=== PATIENT | male | born 1950 | race Caucasian/White ===

== ENCOUNTER 2017-05-30 12:35 | Inpatient (IN) ==
[2017-05-30] MEDS ORDERED: ACETAMINOPHEN 325 MG TABLET PO PRN (13:01)
[2017-05-30] MEDS ORDERED: ONDANSETRON 4 MG/2 ML VIAL IV PRN (13:01)
[2017-05-30] MEDS ORDERED: DEXTROSE 5% NACL 0.9% 1,000 ML IV SCH (13:30)
[2017-05-30 14:23] LABS: Eosinophils % 0.1 % (0.00-10.9); Hematocrit 38.3 VOL% (42.0-52.0); Hemoglobin 12.8 GM/DL (14.0-18.0); Immature Granulocytes Absolute 0.15 #; Lymphocytes # 0.5 10*3/uL (1.4-4.0); Lymphocytes % 3.5 % (21.2-54.2); Mean Corpuscular HGB Conc 33.4 GM/DL (32-36); Mean Corpuscular Hemoglobin 29 PG (27-34); Mean Corpuscular Volume 86.5 FL (87-102); Monocytes # 0.6 10*3/uL (0.11-0.8); Monocytes % 3.8 % (1.7-12.7); Neutrophils # 13.6 10*3/uL (1.4-7.4); Neutrophils % 91.6 % (38.7-73.9); Platelet Count 245 T/CUMM (130-400); Red Blood Count 4.43 MC/CUMM (3.8-5.5); Red Cell Distribution Width 14.1 % (9.3-17.3); White Blood Count 14.8 T/CUMM (4-12)
[2017-05-30 14:45] LABS: Hypochromasia Slight; Lymphocytes 4 % (20-55); Platelet Estimate Adequate; Polychromasia Slight; Segmented Neutrophils 95 % (50-85); Total Cells Counted 100
[2017-05-30 14:55] LABS: Albumin 2.5 G/DL (3.4-5.0); Bilirubin,Total 0.8 MG/DL (0.2-1.0); Calcium 9.2 MG/DL (8.5-10.1); Magnesium 1.7 MG/DL (1.8-2.4); Osmolality,Calculated 303.6 MOS/KG (273-304); Potassium 4.2 MMOL/L (3.5-5.1); Total Protein 6.4 G/DL (6.4-8.3)
--- NOTE | 2017-05-30 14:58 | Hospitalist History & Physical ---
Assessment and Plan (1) Dementia Status: Chronic Assessment and plan: On active therapy with March 2016 imaging showing small vessel disease with lacunar changes and substantial left frontal lobe encephalomalacia (vascular dementia) Current Visit: Yes (2) Diabetes mellitus Status: Chronic Assessment and plan: on metformin only with elevated serum creatinine. Current Visit: Yes Qualifiers: Diabetes mellitus type: type 2 History of Present Illness History of present illness: Mr. Hernandez is a 66 year old male currently unaccompanied. His complaint to me is that he has suprapubic discomfort lasting about an hour coming going on related to any activities. He states he has had solid and liquid mixed bowel movements with the bowel movements not impacting his discomfort. Records indicate that he was in the emergency department on 09 May was treated for bronchitis with Levaquin. At that time his creatinine was 2.1 with a BUN of 27. His urinalysis showed elevated urine protein however his serum albumin level was normal. He reports history of hypertension but in addition is on metformin with a blood sugar of 177 on the April ER visit. We know from the old records as well that in March [address] scan of his head performed. It appears as though he had had a previous aneurysm repair. 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 He is currently on both Namenda and Aricept duration of treatment is unknown at this time. He apparently was referred as he has continued to deteriorate at home. Home Medications Medication Instructions Recorded Confirmed Type Aspirin 1 tablet PO DAILY 05/30/17 05/30/17 History Donepezil [Aricept] 1 tablet PO BEDTIME 05/30/17 05/30/17 History Losartan [Cozaar] 1 tablet PO DAILY 05/30/17 05/30/17 History Memantine HCl/Donepezil HCl 1 capsule PO QOTHER DAY 05/30/17 05/30/17 History [Namzaric 28-10 mg] Mirtazapine [Remeron] 30 mg PO BEDTIME 05/30/17 05/30/17 History Nebivolol [Bystolic] 5 mg PO DAILY 05/30/17 05/30/17 History Omeprazole 20 mg PO BID 05/30/17 05/30/17 History Potassium Chloride [Klor-Con 10] 1 tablet PO BID W/MEALS 08/09/17 08/09/17 History Pravastatin [Pravachol] 20 mg PO BEDTIME 05/30/17 05/30/17 History metFORMIN [Glucophage] 500 mg PO BID 05/30/17 05/30/17 History Allergies Allergy/AdvReac Type Severity Reaction Status Date / Time No Known Allergies Allergy Unverified 05/09/17 21:07 Medical,Surgical,& Family Hx - Medical History Cardio: History of: Hypertension Neurology: History of: Brain Aneurysm, Dementia Endocrine: History of: Diabetes Mellitus (NIDDM), Dyslipidemia Gastrointestinal: History of: GERD - Surgical History Neurologic Surgeries: Surgical HX of: Brain Aneurysm Abdominal Surgeries: Surgical HX of: Appendectomy - Family History Family History: Reports;: Family Cancer (mother-ovarian cancer) - Social History Smoking Status: Former smoker Frequency of Alcohol Use: None Type of Drug Use: None ROS unobtainable: due to mental status (A formal review of systems is performed on the patient however its accuracy is suspect) - Constitutional Constitutional: Absent: chills, fever(s) - Cardiovascular Cardiovascular: Absent: chest pain at rest, chest pain with activity, edema, palpitations - Respiratory Respiratory: Absent: cough, hemoptysis, wheezing - Gastrointestinal Gastrointestinal: Present: abdominal pain, diarrhea (He describes liquid mixed with solid without blood.), other (He describes anorexia but is not able to go further in his description). Absent: coffee ground emesis, dysphagia, hematemesis, hematochezia, melena, nausea, vomiting - Genitourinary Genitourinary: Absent: dysuria, hematuria - Neurological Neurological: Absent: syncope Exam - Constitutional Vitals: Period Temp Pulse Resp BP Sys/Torres Pulse Ox Last 24 Hr 97.0 F 62 20 174/99 92 General appearance: normal weight, no acute distress - Eye Eye exam: Present: EOMI. Absent: nystagmus, scleral icterus - Neck Neck exam: Absent: lymphadenopathy, thyromegaly - Respiratory Respiratory exam: Absent: rales, rhonchi, wheezes - Cardiovascular Cardiovascular exam: Present: regular rate and rhythm, other (Pulses present to popliteal, diminished pedal). Absent: carotid bruit - GI/Abdominal GI/Abdominal exam: Present: normal bowel sounds. Absent: ascites, distended, organomegaly, tenderness - Extremities Exam Extremities exam: Present: other (Marked interosseal wasting bilaterally symmetric). Absent: edema - Neurological Exam Neurological exam: Present: alert, CN II-XII intact, other (Diffuse proximal muscle weakness without asymmetry.). Absent: oriented X3 - Psychiatric Psychiatric exam: Present: depressed Results - Labs CBC & BMP: 05/30/17 14:07 Labs: Remainder of laboratory work and radiographic evaluation is pending at time of this dictation
[2017-05-30 15:54] LABS: ABG Base Excess -6.1 MMOL/L (-2.5-2.5); ABG HCO3 19.5 MMOL/L (20-26); ABG Oxygen Saturation 98.5 % (95-100); ABG PCO2 25.2 MM HG (35-48); ABG TCO2 14.7 MMOL/L (23-27); Allen Test Positive; Pt O2 Delivery Device Room Air
[2017-05-30 16:22] LABS: Apearance,Urine Slightly Hazy (Clear); Bacteria,Urine Occasional /HPF (Few); Bilirubin,Urine Negative (Negative); Blood, Urine Moderate mg/dL (Negative); Glucose,Urine (UA) Negative (Negative); Ketones,Urine 5 mg/dL (Negative); Nitrite,Urine Negative (Negative); Protein,Urine 100 MG/DL; RBC,Urine 53 /HPF (0-4); Squamous Epithelial Cell,Urine Occasional /HPF (0-10); Urine Color Yellow (Yellow); Urine Specific Gravity 1.018 (1.001-1.035); Urine Urobilinogen < 2.0 EU/DL (0.2-1.0); WBC,Urine 5 /HPF (0-6)
[2017-05-30] MEDS: SODIUM CHLORIDE 0.45% 1,000 ML IV SCH (17:41)
[2017-05-30] MEDS: ENOXAPARIN 40 MG/0.4 ML SYRINGE SUBCUT SCH (17:41)
--- NOTE | 2017-05-30 18:14 | XRay Report ---
XR chest 1V portable Indication: Shortness of breath Comparison: Chest x-ray 05/09/2017 Technique: Portable AP chest was performed. Findings: Heart size is normal. Pulmonary vasculature appears within normal limits. No significant abnormality of the mediastinal contours demonstrated. Lungs are clear. Bones and soft tissues demonstrate no significant abnormalities. Impression: 1. No evidence of acute pathology. 05/30/2017 5:52 PM PROCEDURE INTERPRETED AT [facility] DEPARTMENT OF RADIOLOGY Final Report Signed by: Dr. Otis Last
[2017-05-30 18:45] LABS: Protein/Creatinine Ratio,Urine 1.2 RATIO
[2017-05-30] MEDS: DONEPEZIL 10 MG TABLET PO SCH (20:48)
[2017-05-30] MEDS: MIRTAZAPINE 30 MG TABLET PO SCH (20:48)
[2017-05-30] MEDS: PRAVASTATIN 20 MG TABLET PO SCH (20:48)
[2017-05-30] MEDS: DOCUSATE SODIUM 100 MG CAPSULE PO SCH (20:48)
[2017-05-31 07:17] LABS: Basophils % 0.1 % (0.0-0.8); Eosinophils # 0.1 10*3/uL (0.0-0.87); Eosinophils % 0.7 % (0.00-10.9); Hematocrit 34.2 VOL% (42.0-52.0); Hemoglobin 11.5 GM/DL (14.0-18.0); Immature Granulocytes % 0.9 %; Immature Granulocytes Absolute 0.08 #; Lymphocytes # 0.8 10*3/uL (1.4-4.0); Lymphocytes % 9.3 % (21.2-54.2); Mean Corpuscular HGB Conc 33.6 GM/DL (32-36); Mean Corpuscular Hemoglobin 29 PG (27-34); Mean Corpuscular Volume 85.9 FL (87-102); Mean Platelet Volume 10.1 FL (9.6-12.0); Monocytes # 0.4 10*3/uL (0.11-0.8); Monocytes % 4.3 % (1.7-12.7); Neutrophils # 7.4 10*3/uL (1.4-7.4); Neutrophils % 84.7 % (38.7-73.9); Platelet Count 160 T/CUMM (130-400); Red Blood Count 3.98 MC/CUMM (3.8-5.5); Red Cell Distribution Width 14.1 % (9.3-17.3); White Blood Count 8.8 T/CUMM (4-12)
[2017-05-31 07:55] LABS: Albumin 2.2 G/DL (3.4-5.0); Bilirubin,Total 0.7 MG/DL (0.2-1.0); Calcium 8.4 MG/DL (8.5-10.1); Total Protein 5.8 G/DL (6.4-8.3)
[2017-05-31 07:56] LABS: Magnesium 1.6 MG/DL (1.8-2.4); Osmolality,Calculated 298.7 MOS/KG (273-304); Potassium 3.8 MMOL/L (3.5-5.1)
--- NOTE | 2017-05-31 08:48 | Hospitalist Progress Note ---
Assessment and Plan (1) Dementia Status: Chronic Assessment and plan: On active therapy with March 2016 imaging showing small vessel disease with lacunar changes and substantial left frontal lobe encephalomalacia (vascular dementia) Current Visit: Yes (2) Diabetes mellitus Status: Chronic Assessment and plan: on metformin only with elevated serum creatinine. Current Visit: Yes Qualifiers: Diabetes mellitus type: type 2 Hospitalist: Subjective Interval history: 58-year-old male referred for general downward course. Patient has known dementia with a March 2016 imaging study showing small vessel disease lacunar infarcts and a substantial area of left frontal encephalomalacia. He is chronically on Aricept, Namzaric, and Remeron. His admitting laboratory work showed a decreased CO2 content however on arterial blood gases oxygenation was excellent and this appeared to be a chronic alveolar hyperventilation pattern unassociated with evidence of active infection on urinalysis or chest x-ray. This most likely represents an element of anxiety associated with his dementia. We address a free water deficit with correction overnight. Today his mental status is roughly the same vital signs are stable he has been afebrile overnight. Exam - Constitutional Vitals: Period Temp Pulse Resp BP Sys/Torres Pulse Ox Last 24 Hr 96.2 F-97.9 F 52-62 16-20 133-174/69-99 92-98 General appearance: normal weight - Respiratory Respiratory exam: Present: clear to auscultation bilaterally. Absent: rales, rhonchi, wheezes - Cardiovascular Cardiovascular exam: Present: regular rate and rhythm - GI/Abdominal GI/Abdominal exam: Present: normal bowel sounds. Absent: tenderness - Extremities Exam Extremities exam: Absent: edema - Neurological Exam Neurological exam: Present: alert. Absent: oriented X3 Results - Labs CBC & BMP: 05/31/17 06:20 05/31/17 06:20 Labs: PH 7.43 pCO2 25 pO2 109 on room air - Diagnostic Findings Procedure: Chest x-ray: report reviewed by me (No infiltrates)
[2017-05-31] MEDS ORDERED: NEBIVOLOL 5 MG TABLET PO SCH (09:00)
[2017-05-31] MEDS: SODIUM CHLORIDE 0.45% 1,000 ML IV SCH (10:05)
[2017-05-31] MEDS: DOCUSATE SODIUM 100 MG CAPSULE PO SCH ×2 (10:06→22:14)
[2017-05-31] MEDS: PANTOPRAZOLE 40 MG TABLET PO SCH (10:06)
[2017-05-31] MEDS: LOSARTAN 25 MG TABLET PO SCH (10:06)
[2017-05-31] MEDS: ASPIRIN CHEW 81 MG TABLET PO SCH (10:06)
[2017-05-31] MEDS: POTASSIUM CHLORIDE INJ 20 MEQ in LACTATED RINGERS 1,000 ML IV SCH (16:19)
[2017-05-31] MEDS: ENOXAPARIN 40 MG/0.4 ML SYRINGE SUBCUT SCH (18:09)
[2017-05-31] MEDS: DONEPEZIL 10 MG TABLET PO SCH (22:14)
[2017-05-31] MEDS: PRAVASTATIN 20 MG TABLET PO SCH (22:14)
[2017-05-31] MEDS: MIRTAZAPINE 30 MG TABLET PO SCH (22:15)
[2017-06-01] MEDS: POTASSIUM CHLORIDE INJ 20 MEQ in LACTATED RINGERS 1,000 ML IV SCH ×2 (06:02→19:04)
[2017-06-01 07:18] LABS: Free T4 (Free Thyroxine) 1.83 NG/DL (0.76-1.46); Thyroid Stimulating Hormone 0.386 uIU/ml (0.358-3.74)
--- NOTE | 2017-06-01 08:46 | Hospitalist Progress Note ---
Assessment and Plan (1) Dementia Status: Chronic Assessment and plan: On active therapy with March 2016 imaging showing small vessel disease with lacunar changes and substantial left frontal lobe encephalomalacia (vascular dementia) Current Visit: Yes (2) Diabetes mellitus Status: Chronic Assessment and plan: on metformin only with elevated serum creatinine. Blood sugars in hospital have been adequate off metformin. Current Visit: Yes Qualifiers: Diabetes mellitus type: type 2 Hospitalist: Subjective Interval history: 58-year-old male referred from physician's office for a downward clinical course. The patient has known dementia with March 2016 imaging study showing small vessel disease, lacunar infarct, and a substantial area of left frontal encephalomalacia. His admitting laboratory work showed a decreased CO2 content but arterial blood gases this showed alveolar hyperventilation rather than a metabolic acidosis. Patient's TSH level returned normal and he was discontinued from by systolic due to persistent slow heart rate. Thus far there is been no deterioration in his blood pressure control and his heart rate has increased. foreign exchange services manager have become involved regarding potential disposition and physical therapy has been initiated. Apparently yesterday the patient had difficulty swallowing and IV fluids were resumed after having completed a course of rehydration with free water due to admitting electrolyte abnormality. Overnight his vital signs are stable he is more alert this morning than previous. Exam - Constitutional Vitals: Period Temp Pulse Resp BP Sys/Torres Pulse Ox Last 24 Hr 97.2 F-98.6 F 50-53 17-20 168-199/68-88 98-100 General appearance: normal weight - Respiratory Respiratory exam: Present: clear to auscultation bilaterally. Absent: rales, rhonchi, wheezes - Cardiovascular Cardiovascular exam: Present: regular rate and rhythm - GI/Abdominal GI/Abdominal exam: Present: normal bowel sounds. Absent: tenderness - Extremities Exam Extremities exam: Absent: edema - Neurological Exam Neurological exam: Present: alert. Absent: oriented X3 Results - Labs CBC & BMP: 05/31/17 06:20 05/31/17 06:20
[2017-06-01] MEDS: DOCUSATE SODIUM 100 MG CAPSULE PO SCH ×2 (09:34→21:07)
[2017-06-01] MEDS: ASPIRIN CHEW 81 MG TABLET PO SCH (09:34)
[2017-06-01] MEDS: LOSARTAN 25 MG TABLET PO SCH (09:35)
[2017-06-01] MEDS: PANTOPRAZOLE 40 MG TABLET PO SCH (09:35)
[2017-06-01] MEDS: MEMANTINE 10 MG TABLET PO SCH ×2 (09:35→21:08)
--- NOTE | 2017-06-01 15:24 | Event Note ---
Discussed with the and all family members available. Speech therapy identified poor swallowing function. We discussed the various options for him and specifically discussed PEG tube placement. Tangentially we also discussed home health versus possible assisted referral. The patient's family desires PEG tube assessment.
[2017-06-01] MEDS: ENOXAPARIN 40 MG/0.4 ML SYRINGE SUBCUT SCH (17:10)
[2017-06-01] MEDS: DONEPEZIL 10 MG TABLET PO SCH (21:07)
[2017-06-01] MEDS: PRAVASTATIN 20 MG TABLET PO SCH (21:08)
[2017-06-01] MEDS: MIRTAZAPINE 30 MG TABLET PO SCH (21:08)
[2017-06-02 02:51] LABS: Calcium 8.5 MG/DL (8.5-10.1); Osmolality,Calculated 294.6 MOS/KG (273-304); Potassium 4.3 MMOL/L (3.5-5.1)
--- NOTE | 2017-06-02 07:37 | Hospitalist Progress Note ---
Assessment and Plan (1) Dementia Status: Chronic Assessment and plan: On active therapy with March 2016 imaging showing small vessel disease with lacunar changes and substantial left frontal lobe encephalomalacia (vascular dementia) Current Visit: Yes (2) Diabetes mellitus Status: Chronic Assessment and plan: on metformin only with elevated serum creatinine. Blood sugars in hospital have been adequate off metformin. Current Visit: Yes Qualifiers: Diabetes mellitus type: type 2 Hospitalist: Subjective Interval history: 66-year-old male referred for admission from his physician's office due to a down hugo clinical course. In March 2016 the patient had imaging performed showing small vessel disease lacunar infarcts and a substantial area of left frontal encephalomalacia. The patient is on active treatment for dementia. His admission laboratory work demonstrated a decreased CO2 however arterial blood gases documented this to the primary alveolar hyperventilation most likely secondary to superimposed anxiety with his dementia. Speech therapy evaluation was felt to be consistent with swallowing dysfunction. He was mildly dehydrated on presentation with free water deficit which was initially corrected he is subsequently placed back on IV fluids due to concerns about his swallowing. He also had a significant sinus bradycardia associated with the use of Bystolic which has been held. Heart rate is increased but with rehydration and medication interruption he has developed for systolic hypertension. His low-dose Cozaar has been augmented. Overnight his vital signs have been stable he is awake and alert but continues confused. We discussed the situation with his family yesterday and they are willing to consider a PEG tube placement for volume and calorie support. Exam - Constitutional Vitals: Period Temp Pulse Resp BP Sys/Torres Pulse Ox Last 24 Hr 96.8 F-98.5 F 50-63 16-20 142-211/71-90 97-99 General appearance: normal weight - Respiratory Respiratory exam: Present: clear to auscultation bilaterally. Absent: rales, rhonchi, wheezes - Cardiovascular Cardiovascular exam: Present: regular rate and rhythm - GI/Abdominal GI/Abdominal exam: Present: normal bowel sounds. Absent: organomegaly, tenderness - Extremities Exam Extremities exam: Absent: edema - Neurological Exam Neurological exam: Present: alert. Absent: oriented X3 Results - Labs CBC & BMP: 05/31/17 06:20 06/02/17 02:00
--- NOTE | 2017-06-02 09:49 | Gastrointestinal Consult Note ---
Assessment and Plan - Time spent with patient Time spent with patient: Greater than 30 minutes (1) Unable to eat Status: Acute Current Visit: Yes (2) Other specified counseling Status: Acute Current Visit: Yes History of Present Illness History of present illness: Mr. Hernandez is a 66 year old male Home Medications Medication Instructions Recorded Confirmed Type Aspirin 1 tablet PO DAILY 05/30/17 05/30/17 History Donepezil [Aricept] 1 tablet PO BEDTIME 05/30/17 05/30/17 History Losartan [Cozaar] 1 tablet PO DAILY 05/30/17 05/30/17 History Memantine HCl/Donepezil HCl 1 capsule PO QOTHER DAY 05/30/17 05/30/17 History [Namzaric 28-10 mg] Mirtazapine [Remeron] 30 mg PO BEDTIME 05/30/17 05/30/17 History Nebivolol [Bystolic] 5 mg PO DAILY 05/30/17 05/30/17 History Omeprazole 20 mg PO BID 05/30/17 05/30/17 History Potassium Chloride [Klor-Con 10] 1 tablet PO BID W/MEALS 05/30/17 05/30/17 History Pravastatin [Pravachol] 20 mg PO BEDTIME 05/30/17 05/30/17 History metFORMIN [Glucophage] 500 mg PO BID 05/30/17 05/30/17 History Allergies Allergy/AdvReac Type Severity Reaction Status Date / Time No Known Allergies Allergy Unverified 05/09/17 21:07 Medical,Surgical,& Family Hx - Medical History Cardio: History of: Hypertension Psychological: No history of: Anxiety Disorders, ADHD, Behavior Problems, Bipolar Disorder, Depression, Previous Suicide Attempt, Psychiatric/Substance Abuse Tx, Schizophrenia, Violent Behavior, Psychiatric Problems Neurology: History of: Brain Aneurysm, Dementia Endocrine: History of: Diabetes Mellitus (NIDDM), Dyslipidemia Gastrointestinal: History of: GERD - Surgical History Neurologic Surgeries: Surgical HX of: Brain Aneurysm Abdominal Surgeries: Surgical HX of: Appendectomy - Family History Family History: Reports;: Family Cancer (mother-ovarian cancer) - Social History Smoking Status: Former smoker Frequency of Alcohol Use: None Type of Drug Use: None Exam - Constitutional Vitals: Period Temp Pulse Resp BP Sys/Torres Pulse Ox Last 24 Hr 96.8 F-98.5 F 50-63 16-19 164-211/71-90 97-99 Results - Labs CBC & BMP: 05/31/17 06:20 06/02/17 02:00 Note Addendum: PLEASE NOTE -- automatic citation of patient information is unavoidable in this electronic note. I have made a reasonable effort to review the information cited , but it is not a part of my evaluation, impression, or recommendation unless specifically discussed in the dictated text that follows. As well, voice recognition software was used in the creation of this clinical note. Reasonable effort was made to identify and correct gross errors. Despite proofreading, errors in aerospace mechanic may be present, including nonsense verbiage at times. If you encounter such an error, please contact me at [phone] for discussion and correction. -- Mariah Chief complaint: inability to take adequate oral nutrition History of present illness: This is a new patient, a 66-year-old male seen by consultation for evaluation of inability to take adequate oral nutrition and in consideration of PEG placement. The patient is admitted to hospitalist service under the care of Dr. Fraga with a primary diagnosis of dementia with a failure to thrive picture at home. The patient was admitted through the emergency department three days ago with primary complaint of suprapubic discomfort. Evaluation at that time revealed mild leukocytosis and mild anemia. The former resolved with supportive care and the latter has remained stable with no gross or overt bleeding documented. During the course of admission, it has become clear to the hugo staff and primary physician that the patient is unable to take adequate oral nutrition due to swallowing difficulty. Speech pathology has done a bedside swallowing exam and the patient has failed same due to aspiration and cough. As the patient suffers from dementia, PEG placement has been discussed with family by the primary physician and the family is requesting same. On interview this morning the patient is alert but disoriented, answers questions about does not clearly understand the nature of his condition. He reports no pain currently but is otherwise unable to provide adequate review of systems. Review of systems: unable to provide Outpatient medications: aspirin, Aricept, Cozaar, Namzaric, Remeron, Bystolic, omeprazole, potassium chloride, Pravachol, Glucophage Inpatient medications: Tylenol, Colace, aspirin, Aricept, Lovenox, [place], Cozaar , Namenda, Remeron, Zofran, Protonix, potassium chloride, Pravachol Past Medical History: hypertension, intracranial aneurysm (repaired), dementia, diabetes, dyslipidemia, gastroesophageal reflux disease Social history: prior tobacco. Negative alcohol Family history: mother with ovarian cancer; no gastrointestinal cancers Physical examination: Vital Signs: Current vital signs reviewed and documented above. General Appearance: lying in bed. Comfortable. Thin appearing. Head: Normocephalic. Neck: Palpation of the neck revealed no abnormalities. Eyes: No scleral icterus. No scleral injection. No conjunctival pallor. Oral Cavity: Odor of breath was normal. No drooling was observed. Lips showed no abnormalities. Floor of the mouth showed no abnormalities. Dentition was poor Pharynx: Oropharynx was normal. Lungs: Respiration rhythm and depth was normal. Cardiovascular: Heart rate and rhythm were normal. No murmurs were appreciated. Abdomen: abdomen was not distended. Abdominal palpation revealed no tenderness and no hepatosplenomegaly. Ascites was not discovered. Abdominal auscultation revealed positive bowel sounds. Musculoskeletal System: Musculoskeletal system was grossly normal. Neurological: level of consciousness was normal. Speech was normal. Skin: General appearance was normal. Color and pigmentation were normal. No skin lesions. Laboratory: white blood count eight point, hemoglobin 11.5, hematocrit 34.2, platelets 160, ALT 13, AST 17, total bilirubin 0.7, alkaline phosphatase 86, total protein 5.8, albumin 2.2 Radiology: chest x-ray, May 30, 2017 -- no evidence of acute pathology Impressions: 1. Unable to eat -- the patient is unable to successfully take oral nutrition due to aspiration and cough. He is unable to consent for endoscopic procedures due to dementia. His medical decision maker has requested placement of a percutaneous feeding tube (PEG) for the purpose of nutritional supplementation, hydration, and medication administration to the extent feasible. A medical decision maker is not available at present and we will need to have further discussion with written consent prior to proceeding. 2. Other specified counseling -- The patient was seen for greater than 30 minutes. The patient was counseled for greater than 50% of this time regarding differential diagnosis, likely diagnosis, diagnostic and therapeutic alternatives, risks/benefits/alternatives of medications and procedures, and plan of care generally. The patient expressed understanding and wishes to proceed. Recommendations: -- continue NPO for now -- formal speech pathology evaluation with modified barium swallow if not already accomplished -- will schedule PEG placement with timing based on clinical progress, likely Sunday -- thank you for this consultation. We will follow with you
[2017-06-02] MEDS: POTASSIUM CHLORIDE INJ 20 MEQ in LACTATED RINGERS 1,000 ML IV SCH (09:59)
[2017-06-02] MEDS: DOCUSATE SODIUM 100 MG CAPSULE PO SCH (10:38)
[2017-06-02] MEDS: LOSARTAN 25 MG TABLET PO SCH (10:38)
[2017-06-02] MEDS: ASPIRIN CHEW 81 MG TABLET PO SCH (10:38)
[2017-06-02] MEDS: PANTOPRAZOLE 40 MG TABLET PO SCH (10:39)
--- NOTE | 2017-06-02 15:26 | XRay Report ---
Portable chest Date: 06/02/2017 Clinical history: Nasogastric tube placement Comparison: 05/30/2017 Technique: Portable AP sitting chest Findings: The heart remains normal in size. No significant change in the appearance of the lungs or mediastinum. Degenerative changes are noted. The tip of the nasogastric tube projects in the stomach. Impression: The nasogastric tube projects in satisfactory position in the stomach. PROCEDURE INTERPRETED AT [facility] DEPARTMENT OF RADIOLOGY Final Report Signed by: Dr. Stacie Contreras
[2017-06-02] MEDS: ENOXAPARIN 40 MG/0.4 ML SYRINGE SUBCUT SCH (17:26)
--- NOTE | 2017-06-02 18:48 | XRay Report ---
Portable chest Date: 06/02/2017 Clinical history: Nasogastric tube replacement Comparison: 06/02/2017 Technique: Portable AP sitting chest Findings: The tip of the nasogastric tube projects in the medial fundus of the stomach. No significant change in the appearance the visualized chest. Impression: The nasogastric tube projects in satisfactory position in the stomach. PROCEDURE INTERPRETED AT [facility] DEPARTMENT OF RADIOLOGY Final Report Signed by: Dr. Stacie Contreras
[2017-06-03] MEDS: POTASSIUM CHLORIDE INJ 20 MEQ in LACTATED RINGERS 1,000 ML IV SCH ×2 (00:17→12:55)
[2017-06-03] MEDS: DONEPEZIL 10 MG TABLET PO SCH ×2 (00:23→21:08)
[2017-06-03] MEDS: MIRTAZAPINE 30 MG TABLET PO SCH ×2 (00:23→21:08)
[2017-06-03] MEDS: LOSARTAN 25 MG TABLET PO SCH ×3 (00:23→21:09)
[2017-06-03 07:04] LABS: Calcium 8.5 MG/DL (8.5-10.1)
[2017-06-03 07:05] LABS: Osmolality,Calculated 295.7 MOS/KG (273-304); Potassium 4.7 MMOL/L (3.5-5.1)
--- NOTE | 2017-06-03 09:13 | Hospitalist Progress Note ---
Assessment and Plan - Time spent with patient Time spent with patient: Greater than 30 minutes (Pt is new to me, I discussed with RN in regarding his clinical status today. Chart reviewed by me today) (1) Dementia Status: Chronic Assessment and plan: Continue current treatment regimen. Meds through NGT for now Current Visit: Yes (2) Diabetes mellitus Status: Chronic Assessment and plan: Continue current treatment plan. Current Visit: Yes Qualifiers: Diabetes mellitus type: type 2 (3) Unable to eat Status: Acute Assessment and plan: Anticipate PEG in am. NGT feeding at low rate today. Hold it after midnight. PEG in am per GI. Consult dititian in am for peg feeding. Current Visit: Yes Hospitalist: Subjective Interval history: No overnight acute event. Day 4 in hospital, on IVF. NGT in place. Hope PEG in am. Will start gentle NGT feeding today, Hold feeding after midnight. No fever or diarrhea reported. Interval history: 66-year-old male referred for admission from his physician's office due to a down hugo clinical course. In March 2016 the patient had imaging performed showing small vessel disease lacunar infarcts and a substantial area of left frontal encephalomalacia. The patient is on active treatment for dementia. His admission laboratory work demonstrated a decreased CO2 however arterial blood gases documented this to the primary alveolar hyperventilation most likely secondary to superimposed anxiety with his dementia. Speech therapy evaluation was felt to be consistent with swallowing dysfunction. He was mildly dehydrated on presentation with free water deficit which was initially corrected he is subsequently placed back on IV fluids due to concerns about his swallowing. He also had a significant sinus bradycardia associated with the use of Bystolic which has been held. Heart rate is increased but with rehydration and medication interruption he has developed for systolic hypertension. His low-dose Cozaar has been augmented. Overnight his vital signs have been stable he is awake and alert but continues confused. We discussed the situation with his family yesterday and they are willing to consider a PEG tube placement for volume and calorie support. Exam - Constitutional Vitals: Period Temp Pulse Resp BP Sys/Torres Pulse Ox Last 24 Hr 96.7 F-98.1 F 54-83 18-23 153-201/90-106 95-99 Exam: General: Lying in bed supine. Awake. Confused. On restraint. HEENT: NC AT EOMI, normal lips and gum. NGT in place. Lungs: B/l CTA Heart: +S1/S2, RRR ABD; +BS, NT ND Skin: No edema Neuro: Awake but confused. Results - Labs CBC & BMP: 05/31/17 06:20 06/03/17 06:09
--- NOTE | 2017-06-03 10:04 | Gastrointestinal Progress Note ---
Assessment and Plan - Time spent with patient Time spent with patient: Greater than 30 minutes (1) Unable to eat Status: Acute Current Visit: Yes (2) Other specified counseling Status: Acute Current Visit: Yes Exam (Progress Note) - Constitutional Vitals: Period Temp Pulse Resp BP Sys/Torres Pulse Ox Last 24 Hr 96.7 F-98.1 F 54-83 18-23 153-201/90-106 95-99 Results - Labs CBC & BMP: 05/31/17 06:20 06/03/17 06:09 Note Addendum: PLEASE NOTE -- automatic citation of patient information is unavoidable in this electronic note. I have made a reasonable effort to review the information cited , but it is not a part of my evaluation, impression, or recommendation unless specifically discussed in the dictated text that follows. As well, voice recognition software was used in the creation of this clinical note. Reasonable effort was made to identify and correct gross errors. Despite proofreading, errors in trim mechanic may be present, including nonsense verbiage at times. If you encounter such an error, please contact me at [phone] for discussion and correction. -- Mariah Chief complaint: inability to take adequate oral nutrition Subjective: This is a 66-year-old male seen for follow-up of inability to take adequate oral nutrition and in consideration of PEG placement. The patient remains unable to participate in a medical interview. Patient has had a nasogastric tube placed and is planning to start feeding. Family members are not present. Review of systems: unable to provide Inpatient medications: Tylenol, Colace, aspirin, Aricept, Lovenox, [place], Cozaar , Namenda, Remeron, Zofran, Protonix, potassium chloride, Pravachol Physical examination: Vital Signs: Current vital signs reviewed and documented above. General Appearance: lying in bed. Comfortable. Thin appearing. Head: Normocephalic. Nasogastric tube in place. Neck: Palpation of the neck revealed no abnormalities. Eyes: No scleral icterus. No scleral injection. No conjunctival pallor. Oral Cavity: Odor of breath was normal. No drooling was observed. Lips showed no abnormalities. Floor of the mouth showed no abnormalities. Dentition was poor Pharynx: Oropharynx was normal. Lungs: Respiration rhythm and depth was normal. Cardiovascular: Heart rate and rhythm were normal. No murmurs were appreciated. Abdomen: abdomen was not distended. Abdominal palpation revealed no tenderness and no hepatosplenomegaly. Ascites was not discovered. Musculoskeletal System: Musculoskeletal system was grossly normal. Neurological: level of consciousness was normal. Speech was normal. Skin: General appearance was normal. Color and pigmentation were normal. No skin lesions. Laboratory: reviewed Radiology: reviewed Impressions: 1. Unable to eat -- the patient is unable to successfully take oral nutrition due to aspiration and cough. He is unable to consent for endoscopic procedures due to dementia. His medical decision maker has requested placement of a percutaneous feeding tube (PEG) for the purpose of nutritional supplementation, hydration, and medication administration to the extent feasible. A medical decision maker is not available at present and we will need to have further discussion with written consent prior to proceeding. I agree with placement of nasogastric tube and initiation of feeding. The patient should be NPO after midnight. 2. Other specified counseling -- The patient was seen for less than 30 minutes. The patient was counseled for greater than 50% of this time regarding differential diagnosis, likely diagnosis, diagnostic and therapeutic alternatives, risks/benefits/alternatives of medications and procedures, and plan of care generally. The patient expressed understanding and wishes to proceed. Recommendations: -- agree with nasogastric tube and initiation of interval feeding -- formal speech pathology evaluation with modified barium swallow if not already accomplished -- will schedule PEG placement with timing based on clinical progress, likely Sunday. Family will need to consent for same. -- thank you for this consultation. Dr. Jalloh will assume G.I. care for this patient tomorrow
--- NOTE | 2017-06-03 10:05 | XRay Report ---
Portable chest Date: 06/02/2017 Clinical history: Nasogastric tube placement Comparison: 06/02/2017 Technique: Portable AP sitting chest Findings: The tip of the nasogastric tube projects in the distal stomach. No significant change in the appearance of the visualized lungs. Impression: The tip of the nasogastric tube projects in the distal stomach. PROCEDURE INTERPRETED AT [facility] DEPARTMENT OF RADIOLOGY Final Report Signed by: Dr. Stacie Contreras
[2017-06-03] MEDS: ENOXAPARIN 40 MG/0.4 ML SYRINGE SUBCUT SCH (17:03)
[2017-06-04] MEDS: POTASSIUM CHLORIDE INJ 20 MEQ in LACTATED RINGERS 1,000 ML IV SCH (01:37)
[2017-06-04 07:01] LABS: Basophils % 0.1 % (0.0-0.8); Eosinophils # 0.1 10*3/uL (0.0-0.87); Eosinophils % 0.7 % (0.00-10.9); Hematocrit 31.7 VOL% (42.0-52.0); Hemoglobin 10.7 GM/DL (14.0-18.0); Immature Granulocytes % 0.8 %; Immature Granulocytes Absolute 0.08 #; Lymphocytes # 0.8 10*3/uL (1.4-4.0); Lymphocytes % 7.2 % (21.2-54.2); Mean Corpuscular HGB Conc 33.8 GM/DL (32-36); Mean Corpuscular Hemoglobin 29 PG (27-34); Mean Corpuscular Volume 85.4 FL (87-102); Mean Platelet Volume 10.2 FL (9.6-12.0); Monocytes # 0.7 10*3/uL (0.11-0.8); Monocytes % 6.8 % (1.7-12.7); Neutrophils # 8.8 10*3/uL (1.4-7.4); Neutrophils % 84.4 % (38.7-73.9); Platelet Count 166 T/CUMM (130-400); Red Blood Count 3.71 MC/CUMM (3.8-5.5); Red Cell Distribution Width 14.1 % (9.3-17.3); White Blood Count 10.4 T/CUMM (4-12)
[2017-06-04 07:18] LABS: INR 1.1; PT Patient Result 11.9 SECS; Partial Thromboplastin Time 32.9 SECS (0-40)
[2017-06-04 07:33] LABS: Calcium 8.2 MG/DL (8.5-10.1); Magnesium 1.5 MG/DL (1.8-2.4); Osmolality,Calculated 297.7 MOS/KG (273-304); Potassium 4.7 MMOL/L (3.5-5.1)
[2017-06-04] MEDS: LOSARTAN 25 MG TABLET PO SCH (08:46)
--- NOTE | 2017-06-04 12:54 | History and Physical Update ---
History and Physical Update - Physical Exam Mental Status: other (Awake, nonverbal) Heart: regular rate and rhythm Lung: clear to auscultation Abdomen: within normal limits Vitals: within normal limits History and Physical Changes: 66-year-old male is unable to eat and we are asked to place gastrostomy tube for nutritional support.
--- NOTE | 2017-06-04 12:57 | Operative Note ---
Date of procedure: 06/04/17 Pre-op diagnosis: Inability to eat, dementia Procedure: Procedure: Esophagogastroduodenoscopy with percutaneous endoscopic gastrostomy tube placed Brief clinical abstract: 66-year-old male with advanced dementia is unable to eat and we are asked to place gastrostomy tube for nutritional support. Indication for procedure: Inability to eat Endoscopic findings:[After informed consent was obtained, the patient was placed in the left lateral decubitus position. The gastroscope was inserted in the upper esophagus under direct vision with no resistance encountered. Esophageal mucosa appeared normal with squamocolumnar junction sharply demarcated above a small hiatal hernia. The endoscope was advanced in the stomach which was carefully examined including retroflexed view of the cardia and fundus with no abnormality seen. The pyloric channel, duodenal bulb, second and third portion of the duodenum appeared normal. The endoscope was withdrawn back into the stomach. Site for gastrostomy tube placement was selected using external indentation and endoscopic transillumination. Sterile field was created over the anterior abdomen at the site. 5 cc of 1% lidocaine was injected subcutaneously down the level of the gastric wall. An approximately 5 mm superficial transverse incision was made with scalpel. Cook 20 Italian gastrostomy tube was placed with pull technique without difficulty. The tube was secured at the 2.5 cm sharmaine at the skin surface with external bumper applied at that level. A dressing was applied at the site afterwards. He appeared to tolerate the procedure well. Impression: #1 small hiatal hernia-otherwise normal EGD #2 status post successful PEG tube placement Recommendations: Keep abdominal binder over PEG tube. Dietary consult for tube feeding recommendations and can start feedings tomorrow morning if PEG site/ abdominal exam stable. Anesthesia: MAC Surgeon / Physician: Darwin Jalloh Estimated blood loss: minimal Specimens: none sent Condition: stable Disposition: post procedure unit Results - Labs CBC & BMP: 06/04/17 05:06 06/04/17 05:06 Discharge Plan - Discharge Medications No Action Nebivolol [Bystolic] 5 mg PO DAILY Mirtazapine [Remeron] 30 mg PO BEDTIME metFORMIN [Glucophage] 500 mg PO BID Pravastatin [Pravachol] 20 mg PO BEDTIME Potassium Chloride [Klor-Con 10] 1 tablet PO BID W/MEALS Omeprazole 20 mg PO BID Memantine HCl/Donepezil HCl [Namzaric 28-10 mg] 1 capsule PO QOTHER DAY Losartan [Cozaar] 1 tablet PO DAILY Donepezil [Aricept] 1 tablet PO BEDTIME Aspirin 1 tablet PO DAILY - Follow Up or Referral - Forms/Instructions
--- NOTE | 2017-06-04 13:11 | Anesthesia Post-Op ---
Anesthesia Post OP - Post Ansesthetic Evaluation Patient seen in post op: Yes Resp: within normal limits CV: within normal limits Mental: within normal limits Temp: within normal limits Knms-Pd-Stwlfksjg: within normal limits Nausea and Vomiting: within normal limits Pain: within normal limits
--- NOTE | 2017-06-04 14:51 | Case Mgmt Physician Query Form ---
TB Signs and Symptoms Screening ([place]) INSTRUCTIONS: To be completed annually on residents/staff with a significant Tuberculin Skin Test (TST) upon admission/hire or a prior significant TST. To be completed on all staff at hire. Please respond to each listed symptom with an (X) in either the "YES" or "NO" box. Do you currently have any of the following symptoms: YES NO ( ) (x ) A cough If yes, is it: ( ) Productive ( ) Non- productive ( ) (x ) Hemoptysis (spitting up blood) ( ) (x ) Chest pains ( ) (x ) Weight Loss ( ) (x ) Fever ( ) (x ) Night Sweats ( ) (x ) Weakness ( ) (x ) Loss of Appetite ( ) (x ) Difficulty Breathing If you answered YES" to any of the above questions, how long have symptoms been present? Comments: If you have any questions, please contact me . Thank you, Ute GIRALDO Email: [email or web address] [facility]
[2017-06-04] MEDS ORDERED: TUBERCULIN SKIN TEST 0.1 ML SYRINGE INTRADERM ONE (14:52)
[2017-06-04] MEDS ORDERED: hydrALAZINE 20 MG/1 ML VIAL IV PRN (14:53)
--- NOTE | 2017-06-04 14:57 | Hospitalist Progress Note ---
Assessment and Plan (1) Dysphasia Status: Acute Assessment and plan: PEG tube placement today. Increase IV fluid rate. (2) Acute kidney injury Status: Acute Assessment and plan: Creatinine has risen to 1.6. Hold angiotensin receptor liyah. Increase IV fluids. Repeat a.m. labs. Current Visit: Yes (3) Metabolic acidosis Status: Acute Current Visit: Yes (4) Dementia Status: Chronic Current Visit: Yes Qualifiers: Dementia type: Alzheimer's disease Alzheimer's disease onset: early-onset Dementia behavioral disturbance: without behavioral disturbance Qualified Code(s): G30.0 - Alzheimer's disease with early onset; F02.80 - Dementia in other diseases classified elsewhere without behavioral disturbance (5) Diabetes mellitus Status: Chronic Current Visit: Yes Qualifiers: Diabetes mellitus type: type 2 (6) Uncontrolled hypertension Status: Acute Assessment and plan: Hold Cozaar due to renal impairment. Add Norvasc and hydralazine. Current Visit: Yes Hospitalist: Subjective Interval history: Patient seen and examined. No acute events overnight. Case discussed with nursing staff. Labs reviewed. The patient's family members are at the bedside. He is scheduled for PEG tube placement today. Review of labs shows acute kidney injury and dehydration with an element of metabolic acidosis. Medication adjustments have been made. His blood pressure is poorly controlled. Exam - Constitutional Vitals: Period Temp Pulse Resp BP Sys/Torres Pulse Ox Last 24 Hr 96.3 F-98.7 F 61-79 17-20 145-207/71-96 91-100 Exam: Constitutional System: No distress. No tremulousness. Minimally responsive. Head: Normocephalic, atraumatic. Ears, Nose and Throat System: No pain or tenderness. No epistaxis or discharge. Mucous membranes dry. Eyes System: Pupils equal, round, and reactive. Extraocular muscles intact. Neck: Supple, without adenopathy, No jugular venous distention. No thyromegaly, neck mass, or prior surgery apparent. Respiratory System: Chest clear to auscultation. Cardiovascular System: Heart with regular rate and rhythm. No murmur. GI System: Abdomen soft, nontender. Normo active bowel sounds present. Results - Labs CBC & BMP: 06/04/17 05:06 06/04/17 05:06 Lab Results: I have reviewed the past 24 hour labs - Diagnostic Findings Procedure: Chest x-ray: report reviewed by me, image reviewed by me
[2017-06-04] MEDS ORDERED: MAGNESIUM SULF RIDER 2 GM in PREMIX 1 EACH IV ONE (15:25)
[2017-06-04] MEDS ORDERED: LIDOCAINE 1% 5 ML VIAL ONE (15:27)
[2017-06-04] MEDS ORDERED: PROPOFOL 200 MG/20 ML VIAL IV ONE (15:27)
[2017-06-04] MEDS: hydrALAZINE 25 MG TABLET PO SCH ×2 (15:52→21:00)
[2017-06-04] MEDS: LACTATED RINGERS 1,000 ML IV SCH (15:53)
[2017-06-04] MEDS: amLODIPine 5 MG TABLET PO SCH (15:53)
[2017-06-04] MEDS: ENOXAPARIN 40 MG/0.4 ML SYRINGE SUBCUT SCH (16:51)
[2017-06-04] MEDS: MIRTAZAPINE 30 MG TABLET PO SCH (21:00)
[2017-06-04] MEDS: DONEPEZIL 10 MG TABLET PO SCH (21:00)
[2017-06-05] MEDS: LACTATED RINGERS 1,000 ML IV SCH ×3 (05:48→20:49)
[2017-06-05 08:03] LABS: Calcium 8.3 MG/DL (8.5-10.1); Magnesium 2.1 MG/DL (1.8-2.4); Osmolality,Calculated 295.6 MOS/KG (273-304); Phosphorous 2.9 MG/DL (2.5-4.9); Potassium 4.4 MMOL/L (3.5-5.1); Prealbumin 4.7 MG/DL (20-40)
--- NOTE | 2017-06-05 08:32 | Gastrointestinal Progress Note ---
Assessment and Plan (1) Unable to eat Status: Acute Assessment and plan: 06/05-status post PEG placement on yesterday. No findings of infection at site. Begin tube feedings today. Plan an addendum followed by Dr. Jalloh. Current Visit: Yes Gastroenterology - PN: Subj Interval history: CC: Dementia, inability to eat Patient is seen asleep in bed. He will awaken and converse minimally. PEG tube site was assessed without any drainage, redness or bleeding noted. Abdominal binder is intact. Patient to begin tube feedings today. Abdomen is soft, nontender. ROS: Denies shortness of breath or chest pain Exam (Progress Note) - Constitutional Vitals: Period Temp Pulse Resp BP Sys/Torres Pulse Ox Last 24 Hr 96.6 F-99.1 F 58-79 16-20 145-207/73-96 94-98 General appearance: normal weight, no acute distress - Head Head exam: Present: normal inspection, normocephalic - Eye Eye exam: Present: other (Lids and conjunctive are unremarkable). Absent: scleral icterus - ENT ENT exam: Present: normal exam, normal oropharynx - Neck Neck exam: Present: normal inspection - Respiratory Respiratory exam: Present: clear to auscultation bilaterally. Absent: rales, rhonchi, wheezes - Cardiovascular Cardiovascular exam: Present: regular rate and rhythm. Absent: diastolic murmur , JVD, systolic murmur - GI/Abdominal GI/Abdominal exam: Present: normal bowel sounds, soft. Absent: ascites, distended, mass, organomegaly, tenderness - Extremities Exam Extremities exam: Present: normal inspection, full ROM - Back Exam Back exam: Present: normal inspection - Neurological Exam Neurological exam: Present: alert, altered - Psychiatric Psychiatric exam: Present: normal affect, normal mood - Skin Skin exam: Present: normal color, warm, dry Results - Labs CBC & BMP: 06/04/17 05:06 06/05/17 06:39 Lab Results: I have reviewed the past 24 hour labs
[2017-06-05] MEDS: hydrALAZINE 25 MG TABLET PO SCH ×2 (08:35→20:48)
[2017-06-05] MEDS: amLODIPine 5 MG TABLET PO SCH (08:35)
--- NOTE | 2017-06-05 10:17 | Hospitalist Progress Note ---
Hospitalist: Subjective Interval history: Yesterday, PEG was placed. His tube feedings have been started today. So far, patient is tolerating his tube feedings. He is out of restraints. Patient is demented and speech is incomprehensible. He appears to be in no acute distress. Exam - Constitutional Vitals: Period Temp Pulse Resp BP Sys/Torres Pulse Ox Last 24 Hr 96.6 F-99.1 F 58-79 16-20 145-207/73-97 94-98 General appearance: normal weight, no acute distress - Eye Eye exam: Present: EOMI Pupils: Present: WILLIAN - ENT ENT exam: Present: other (slightly dry oral mucosa) - Respiratory Respiratory exam: Present: clear to auscultation bilaterally - Cardiovascular Cardiovascular exam: Present: regular rate and rhythm. Absent: diastolic murmur , systolic murmur - GI/Abdominal GI/Abdominal exam: Present: normal bowel sounds. Absent: distended, guarding, tenderness (PEG and binder in place; no surround erythema or discharge around PEG site) - Extremities Exam Extremities exam: Present: normal inspection. Absent: edema - Neurological Exam Neurological exam: Present: other (pleasantly demented) Results - Labs CBC & BMP: 06/04/17 05:06 06/05/17 06:39 - Impressions 1. Dysphagia: s/p PEG placement 2. AFTT from dementia s/p PEG placement; so far tolerating tube feeds at 30cc/hr ; continue FWB and titration to goal; appreciate help by nutrition 3. Dementia: stable 4. NAGMA: improving; monitor 5. RANDA: stable; continue fliuids; should imporve with nutrition as well 6. DM: sugars controlled; monitor 7. HT: blood pressure elevated; may need to increase norvasc or change hydralazine to tid; monitor for now Plan: continue current therapy; monitor for refeeding syndrome; appreciate help by SW for discharge planning
[2017-06-05] MEDS: ENOXAPARIN 40 MG/0.4 ML SYRINGE SUBCUT SCH (17:30)
[2017-06-05] MEDS: DONEPEZIL 10 MG TABLET PO SCH (20:48)
[2017-06-05] MEDS: MIRTAZAPINE 30 MG TABLET PO SCH (20:48)
[2017-06-06 06:20] LABS: Albumin 1.6 G/DL (3.4-5.0); Bilirubin,Total 0.9 MG/DL (0.2-1.0); Calcium 8.5 MG/DL (8.5-10.1); Osmolality,Calculated 296.8 MOS/KG (273-304); Potassium 4.1 MMOL/L (3.5-5.1); Total Protein 4.8 G/DL (6.4-8.3)
[2017-06-06] MEDS: amLODIPine 5 MG TABLET PO SCH (10:31)
[2017-06-06] MEDS: LACTATED RINGERS 1,000 ML IV SCH (10:31)
[2017-06-06] MEDS: hydrALAZINE 25 MG TABLET PO SCH (10:31)
--- NOTE | 2017-06-06 10:59 | Discharge Summary ---
Hospital Course - Hospital Course Hospital Course: Mr. Hernandez is a 66 year old male currently unaccompanied. His complaint to me is that he has suprapubic discomfort lasting about an hour coming going on related to any activities. He states he has had solid and liquid mixed bowel movements with the bowel movements not impacting his discomfort. Records indicate that he was in the emergency department on 09 May was treated for bronchitis with Levaquin. At that time his creatinine was 2.1 with a BUN of 27. His urinalysis showed elevated urine protein however his serum albumin level was normal. He reports history of hypertension but in addition is on metformin with a blood sugar of 177 on the April ER visit. We know from the old records as well that in March [address] scan of his head performed. It appears as though he had had a previous aneurysm repair. 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 He is currently on both Namenda and Aricept duration of treatment is unknown at this time. He apparently was referred as he has continued to deteriorate at home. His major problem the hospital was his inability to eat. He underwent insertion of a PEG tube. He tolerated the procedure without complication. The time of his discharge he was stable. Diagnosis - Discharge Diagnosis (1) Dysphagia Status: Chronic (2) Dementia Status: Chronic Discharge Plan - Discharge Data Disposition: Swing Bed, Hos Based, [facility] Condition at Discharge: Stable Discharge Diet: other (PEG tube feedings) Activity: resume usual activities as tolerated - Discharge Medications New amLODIPine [Norvasc] 5 mg PO DAILY tablet hydrALAZINE TAB [Apresoline Tab] 25 mg PO BID tablet Continue Nebivolol [Bystolic] 5 mg PO DAILY Mirtazapine [Remeron] 30 mg PO BEDTIME metFORMIN [Glucophage] 500 mg PO BID Pravastatin [Pravachol] 20 mg PO BEDTIME Potassium Chloride [Klor-Con 10] 1 tablet PO BID W/MEALS Omeprazole 20 mg PO BID Memantine HCl/Donepezil HCl [Namzaric 28-10 mg] 1 capsule PO QOTHER DAY Losartan [Cozaar] 1 tablet PO DAILY Donepezil [Aricept] 1 tablet PO BEDTIME Aspirin 1 tablet PO DAILY - Follow Up or Referral - Forms/Instructions Exam - Constitutional Vitals: Period Temp Pulse Resp BP Sys/Torres Pulse Ox Last 24 Hr 97.4 F-987 F 68-78 16-20 133-198/61-91 93-97 Discharge Results Procedures and tests throughout hospitalization: Pending Orders 05/30/17 14:52 cdiff [C. Diff Toxins A & B] Routine 06/07/17 04:00 Basic Metabolic Panel MOTH Magnesium MOTH Phosphorous MOTH 06/11/17 04:00 Basic Metabolic Panel MOTH Magnesium MOTH Phosphorous MOTH Prealbumin MOTH Labs on day of discharge: Labs from last 24 hours 06/06/17 06/06/17 06/05/17 05:06 05:00 23:07 Sodium 144 Potassium 4.1 Chloride 111 H Carbon Dioxide 23 Anion Gap 14.1 BUN 31 H Creatinine 1.60 H GFR Calculation 43 BUN/Creatinine Ratio 19.00 Glucose 164 H POC Glucose 210 H 176 H Calculated Osmolality 296.8 Calcium 8.5 Magnesium 2.0 Total Bilirubin 0.90 AST 40 H ALT 19 Alkaline Phosphatase 163 H Total Protein 4.8 L Albumin 1.6 L Globulin 3.2 Albumin/Globulin Ratio 0.5 L 06/05/17 06/05/17 19:28 11:47 Sodium Potassium Chloride Carbon Dioxide Anion Gap BUN Creatinine GFR Calculation BUN/Creatinine Ratio Glucose POC Glucose 124 H 123 H Calculated Osmolality Calcium Magnesium Total Bilirubin AST ALT Alkaline Phosphatase Total Protein Albumin Globulin Albumin/Globulin Ratio DS: Provider Date of admission: 05/30/17 12:57 Primary care physician: Chris Diaz DO Attending physician on admission: Jeremi Sharma MD Consults: 05/30/17 14:20 Consult to Dietitian [CONS] Routine Reason for Dietitian: Other 05/31/17 13:11 Consult to Occupational Therapy [CONS] Routine Reason for Occupational Therapy: Evaluate and Treat Consult to Physical Therapy [CONS] Routine Reason for Physical Therapy: Evaluate and Treat 06/01/17 15:22 Consult to Physician [CONS] Routine Comment: Possible PEG Consulting Provider: Darwin Jalloh Consult to Specialist Group: Gastroenterology When should Consulting Provider be notified: In am Person Notified: leopoldo cisneros Date Notified: 06/04/17 Time Notified: 08:11 06/03/17 08:46 Consult to Dietitian [CONS] Routine Reason for Dietitian: TF-Initiate/Manage Consult Comment: will have a new PEG, need feed recs 06/03/17 08:47 Consult to Case Mgmt/Social Srvs [CONS] Routine Reason for Case Mgmt/Social Srvs: Discharge Planning 06/04/17 09:23 Consult to Case Mgmt/Social Srvs [CONS] Routine Reason for Case Mgmt/Social Srvs: Swingbed/SNF/Care Home 06/04/17 15:11 Consult to Dietitian [CONS] Routine Reason for Dietitian: Dietary Consult TF-Initiate/Manage Discharging clinician: Alessio Tse
[2017-06-06 16:16] VITALS: BP 152/71
== END 2017-06-06 16:40 | DRG 884 ==
LOC: SUATTDRO 12:57 → N.5E 12:57
PROVIDERS: ADMIT Internal Medicine
PROC: EGDWPEG (ICD-10-PCS; 2017-06-04 11:35)